=== PATIENT | male | born 1980 | race Caucasian/White ===

== ENCOUNTER 2016-10-20 10:53 | Emergency (ER) | payer MEDICAID ==
[~2016-10-20] VITALS: Ht 182.9 cm; Wt 83.0 kg
[~2016-10-20 10:53] MED LIST: GABA300C8 PO; LORA-205 PO; MORP60CA7 PO; NOR10T PO
[2016-10-20 11:20] VITALS: BP 116/76
== END 2016-10-20 16:22 | disposition home or self-care (01) ==
LOC: ER 10:53
DX: G89.29 Other chronic pain (principal); M54.5 Low back pain; Z76.0 Encounter for issue of repeat prescription; Z88.8 Allergy status to other drugs, medicaments and biological substances

== ENCOUNTER 2017-01-10 06:55 | Emergency (ER) | payer MEDICAID ==
[~2017-01-10] VITALS: Ht 180.3 cm; Wt 79.4 kg
[2017-01-10 07:56] VITALS: BP 119/69
== END 2017-01-10 08:20 | disposition home or self-care (01) ==
LOC: ER 07:00
DX: G89.29 Other chronic pain (principal); M54.5 Low back pain; M54.2 Cervicalgia; K04.7 Periapical abscess without sinus; Z88.6 Allergy status to analgesic agent; F17.210 Nicotine dependence, cigarettes, uncomplicated; F41.9 Anxiety disorder, unspecified; Z76.0 Encounter for issue of repeat prescription